=== PATIENT | female | born 1970 | race Caucasian/White ===

== ENCOUNTER 2020-08-06 16:15 | Emergency (ER) | payer OTHER ==
[~2020-08-06 16:15] MED LIST: AMOXICILLIN500 MG PO; BACITRACIN15 GM TOP; BENTYL10 MG PO; IBUPROFEN800 M1 PO; IBUPROFEN800 MG PO; NITROSTAT0.4 MG SL; PANTOPRAZOLE SO40 MG PO
[2020-08-06 18:09] LABS: BASOPHIL 0.6 % (0-2); HCT 45.1 % (37.0-47.0); HGB 15.3 g/dl (12.5-16.0); MCH 32.1 pg (25.0-31.0); MCHC 33.9 g/dL (32.0-36.0); MCV 94.7 fL (78.0-100.0); MONOCYTE 6.6 % (0-12); MPV 9.3 fL (6.0-9.5); NEUTROPHIL 71.5 % (41-80); NRBC 0; PLT 285 K/uL (150-400); RBC 4.76 M/uL (4.20-5.40); RDW 12.7 % (11.5-14.0); WBC 11.8 K/uL (4.0-10.5)
[2020-08-06 18:18] LABS: BILIRUBIN NEGATIVE (NEGATIVE); BLOOD 2+ Ery/uL (NEGATIVE); CLARITY CLEAR (CLEAR); COLOR YELLOW (YELLOW); GLUCOSE (U) NORMAL (NORMAL); LEUKOCYTES NEGATIVE Leu/uL (NEGATIVE); NITRITE NEGATIVE (NEGATIVE); PROTEIN NEGATIVE (NEGATIVE); UROBILINOGEN 0.2 mg/dL (0.2-1.0); pH 7.5 (5.0-9.0)
[2020-08-06 18:27] LABS: ALBUMIN 3.9 g/dL (3.4-5.0); BILIRUBIN - TOTAL 0.3 mg/dL (0.2-1.0); BUN/CREAT RATIO (CALC) 23.5 RATIO; CREATININE 0.68 mg/dL (0.51-0.95); GLOBULIN (CALCULATION) 3.5 g/dL; POTASSIUM 3.9 mmol/L (3.5-5.1); TOTAL PROTEIN 7.4 g/dL (6.4-8.2)
[2020-08-06 18:38] LABS: BACTERIA TRACE; MUCOUS TRACE; URINARY WBC RARE
[2020-08-06] MEDS ORDERED: ANUCORT-HC25 MG PR (20:04)
== END 2020-08-06 20:18 | disposition home or self-care (01) ==
LOC: FER 16:15
PROVIDERS: Nurse Practitioner Family
DX: N83.202 Unspecified ovarian cyst, left side (principal); K62.5 Hemorrhage of anus and rectum; I10 Essential (primary) hypertension; J30.2 Other seasonal allergic rhinitis; F17.210 Nicotine dependence, cigarettes, uncomplicated; Z90.49 Acquired absence of other specified parts of digestive tract; Z90.710 Acquired absence of both cervix and uterus; Z79.899 Other long term (current) drug therapy
CPT/HCPCS: 36415; 80053; 81001; 82270; 85025; 96372; J1885; J2405; J7030; Q9967

== ENCOUNTER 2020-12-25 09:50 | Emergency (ER) | payer OTHER ==
[~2020-12-25 09:50] MED LIST changes: +ANUCORT-HC25 MG PR
[2020-12-25 11:07] LABS: BASOPHIL 0.5 % (0-2); HCT 42.5 % (37.0-47.0); HGB 14.4 g/dl (12.5-16.0); LYMPHOCYTE 19.6 % (15-48); MCH 32.7 pg (25.0-31.0); MCHC 33.9 g/dL (32.0-36.0); MCV 96.6 fL (78.0-100.0); MONOCYTE 5.7 % (0-12); MPV 9.6 fL (6.0-9.5); NEUTROPHIL 72.1 % (41-80); NRBC 0; PLT 265 K/uL (150-400); RDW 12.2 % (11.5-14.0); WBC 9.3 K/uL (4.0-10.5)
[2020-12-25 11:13] LABS: BILIRUBIN NEGATIVE (NEGATIVE); BLOOD 2+ Ery/uL (NEGATIVE); CLARITY CLEAR (CLEAR); COLOR YELLOW (YELLOW); GLUCOSE (U) NORMAL (NORMAL); LEUKOCYTES NEGATIVE Leu/uL (NEGATIVE); NITRITE NEGATIVE (NEGATIVE); PROTEIN NEGATIVE (NEGATIVE); UROBILINOGEN 0.2 mg/dL (0.2-1.0)
[2020-12-25 11:33] LABS: AMORPHOUS URATES CRYSTALS TRACE; BACTERIA TRACE
[2020-12-25 11:40] LABS: ALBUMIN 3.8 g/dL (3.4-5.0); BILIRUBIN - TOTAL 0.4 mg/dL (0.2-1.0); BUN/CREAT RATIO (CALC) 21.8 RATIO; CREATININE 0.55 mg/dL (0.51-0.95); GLOBULIN (CALCULATION) 3.3 g/dL; POTASSIUM 4.1 mmol/L (3.5-5.1); TOTAL PROTEIN 7.1 g/dL (6.4-8.2)
== END 2020-12-25 12:08 | disposition home or self-care (01) ==
LOC: FER 09:50
PROVIDERS: Emergency Medicine
DX: K58.0 Irritable bowel syndrome with diarrhea (principal); I10 Essential (primary) hypertension; J45.909 Unspecified asthma, uncomplicated; F17.210 Nicotine dependence, cigarettes, uncomplicated
CPT/HCPCS: 36415; 74022; 80053; 81001; 85025